=== PATIENT | female | born 1970 | race African-American/Black ===

== ENCOUNTER 2020-03-27 06:27 | Emergency (ER) | payer MEDICARE ==
[~2020-03-27] VITALS: Ht 170.2 cm; Wt 80.0 kg
[2020-03-27] MEDS ORDERED: OXYCODONE HCL/ACETAMINOPHEN 5/325MG TABLET PO ONE (08:15)
[2020-03-27] MEDS ORDERED: KETOROLAC 60MG/2ML VIAL IM ONE (08:15)
[2020-03-27] MEDS ORDERED: LIDOCAINE HCL/PF 1% 10 MG/ML 5ML VIAL IJ ONE (09:45)
[2020-03-27 10:51] VITALS: BP 164/94
== END 2020-03-27 10:56 | disposition home or self-care (01) ==
LOC: ER 06:27
DX: S82.252A Displaced comminuted fracture of shaft of left tibia, initial encounter for closed fracture (principal); S82.492A Other fracture of shaft of left fibula, initial encounter for closed fracture; S62.615A Displaced fracture of proximal phalanx of left ring finger, initial encounter for closed fracture; V49.59XA Passenger injured in collision with other motor vehicles in traffic accident, initial encounter; Y93.89 Activity, other specified; Y92.488 Other paved roadways as the place of occurrence of the external cause
CPT/HCPCS: 29505; 71045; 73130; 73590; 74176; 81025; 93005; 96372; 99285; J1885; J3490; Z7610